=== PATIENT | female | born 1955 | race Hispanic/Latino ===

== ENCOUNTER → 2024-06-04 12:43 | Outpatient (REF) | payer BC, SELFPAY | LOC: PAVMRI 12:43 | PROVIDERS: ATTENDING PHYSICIAN Psychiatry & Neurology Neurology; FAMILY PHYSICIAN Family Medicine | DX: M47.816 Spondylosis without myelopathy or radiculopathy, lumbar region (principal); M54.16 Radiculopathy, lumbar region | CPT/HCPCS: 72148 ==